=== PATIENT | female | born 1970 | race Caucasian/White ===

== ENCOUNTER 2018-01-10 20:21 | Inpatient (IN) | payer BC ==
[~2018-01-10] VITALS: Ht 172.7 cm; Wt 124.8 kg
[2018-01-10] MEDS ORDERED: ondansetron 4mg rapidly disintigrating tab PO ONE (20:55)
[2018-01-10] MEDS ORDERED: fentaNYL/PF 50MCG/1 ML 2ML syringe IV ONE (21:30)
[2018-01-10] MEDS ORDERED: ondansetron/PF 4mg/2ml inj IV ONE (21:30)
[2018-01-10] MEDS ORDERED: normal saline 1000ML IV soln IVB ONE ×2 (21:30→22:40)
[2018-01-10 22:00] LABS: BASOPHILS % (AUTO) 0.2 % (0-1); EOSINOPHILS # (AUTO) 0.3 X10'3 (0-0.9); EOSINOPHILS % (AUTO) 2.7 % (0-6); HEMATOCRIT 43.7 % (35.0-45.0); HEMOGLOBIN 14.1 g/dl (12.0-16.0); LYMPHOCYTES # (AUTO) 1.8 X10'3 (1.1-4.8); MEAN CORPUSCULAR HEMOGLOBIN 25.1 PG (27.0-31.0); MEAN CORPUSCULAR HGB CONC 32.2 % (33.0-36.5); MEAN CORPUSCULAR VOLUME 77.8 FL (78-98); MEAN PLATELET VOLUME 9.1 FL (7.4-10.4); MONOCYTES # (AUTO) 0.6 X10'3 (0-0.9); MONOCYTES % (AUTO) 4.8 % (2-12); NEUTROPHILS # (AUTO) 9.4 X10'3 (1.8-7.7); NEUTROPHILS % (AUTO) 77.3 % (42-75); PLATELET COUNT 232 X10'3 (140-440); RED BLOOD COUNT 5.62 X10'6 (4.20-5.60); RED CELL DISTRIBUTION WIDTH 18.4 % (11.5-14.5); WHITE BLOOD COUNT 12.2 X10'3 (4.5-11.0)
[2018-01-10] MEDS ORDERED: iohexol 300mg/ml 100ml inj. ONE (22:10)
[2018-01-10] MEDS ORDERED: ONDA4TAB9 PO (22:11)
[2018-01-10] MEDS ORDERED: OXYC-150 PO (22:11)
[2018-01-10] MEDS ORDERED: DOCU-28 PO (22:12)
[2018-01-10 22:14] LABS: ALANINE AMINOTRANSFERASE 22 U/L (12-78); ALBUMIN 3.3 G/DL (3.4-5.0); ALBUMIN/GLOBULIN RATIO 0.9 (1.1-1.5); ALKALINE PHOSPHATASE 19 IU/L (46-116); ANION GAP 6 (8-16); ASPARTATE AMINO TRANSFERASE 14 U/L (10-37); BILIRUBIN,TOTAL 0.4 MG/DL (0.1-1.0); BLOOD UREA NITROGEN 20 MG/DL (7-18); BUN/CREATININE RATIO 16.7 (6.6-38.0); CALCIUM 9.3 MG/DL (8.5-10.1); CHLORIDE 107 MMOL/L (99-107); GLUCOSE 107 MG/DL (70-104); POTASSIUM 3.8 MMOL/L (3.5-5.1); SODIUM 144 MMOL/L (135-145); TOTAL CARBON DIOXIDE 30.8 MMOL/L (24-32); TOTAL PROTEIN 7.1 G/DL (6.4-8.2); eGFR 48 ML/MIN
[2018-01-10] MEDS ORDERED: morphine 4 MG/ML inj SYRINge IV ONE (22:55)
[2018-01-11] VITALS (22 sets, daily range): BP systolic 116–225; BP diastolic 62–110
[2018-01-11] MEDS ORDERED: ondansetron/PF 4mg/2ml inj IV ONE (00:20)
[2018-01-11] MEDS ORDERED: ceFAZolin 1GM/D5W- ADD-VANTAGE 50 ML IV ONE (00:25)
[2018-01-11] MEDS ORDERED: potassium Cl 40MEQ/NS 500ml 500 ML IV PRN ×2 (01:00)
[2018-01-11] MEDS ORDERED: mag hydrox/Alum hydrox/simeth 30ml oral suspension PO PRN (01:00)
[2018-01-11] MEDS ORDERED: magnesium Cl slow-release 64mg tablet PO PRN ×2 (01:00→08:40)
[2018-01-11] MEDS ORDERED: potassium Cl 20 mEq SR tablet PO PRN ×4 (01:00→08:40)
[2018-01-11] MEDS ORDERED: magnesium hydroxide 30ml (MOM) UD suspension PO PRN (01:00)
[2018-01-11] MEDS ORDERED: magnesium 2GM in 50ml NS 50 ML IV PRN ×2 (01:00→08:40)
[2018-01-11] MEDS ORDERED: magnesium 4gm in 100ml NS 100 ML IV PRN ×2 (01:00→08:40)
[2018-01-11] MEDS ORDERED: acetaminophen 325mg tablet PO PRN (01:00)
[2018-01-11] MEDS ORDERED: ondansetron/PF 4mg/2ml inj IV PRN ×2 (01:00→08:40)
[2018-01-11] MEDS ORDERED: morphine 4 MG/ML inj SYRINge IV ONE (01:05)
[2018-01-11] MEDS: normal saline 1000ml 1,000 ML IV SCH ×4 (01:17→22:26)
[2018-01-11] MEDS ORDERED: enalaprilat dihydrate 2.5mg/2ml vial IV PRN (02:45)
[2018-01-11] MEDS: hydrALAZINE 20mg/ml inj. IV PRN ×2 (04:55→23:12)
[2018-01-11] MEDS: morphine 4 MG/ML inj SYRINge IV PRN ×2 (05:36→21:38)
[2018-01-11 06:16] LABS: PARTIAL THROMBOPLASTIN TIME 26 SECONDS (22-32); PROTHROMBIN TIME 10.2 SECONDS (9.0-12.0)
[2018-01-11] MEDS ORDERED: ceFAZolin 1000mg inj ONE ×2 (06:40→07:56)
[2018-01-11] MEDS ORDERED: hydrALAZINE 20mg/ml inj. IV ONE (06:45)
[2018-01-11] MEDS: K and/or MAG REPLACEMENT MC SCH (06:55)
[2018-01-11] MEDS: ceFAZolin 1GM/D5W- ADD-VANTAGE 50 ML IV SCH ×2 (07:09→16:55)
[2018-01-11] MEDS ORDERED: sevoflurane 250ml liquid IH ONE (07:36)
[2018-01-11] MEDS ORDERED: EPHEDRINE SULFATE/0.9% NACL/PF 50 MG/5 ML ML IJ ONE (07:36)
[2018-01-11] MEDS ORDERED: fentaNYL /PF 50mcg/ml 5ml ampule ONE (07:38)
[2018-01-11] MEDS ORDERED: propofol inj 20 ML IV ONE (07:56)
[2018-01-11] MEDS ORDERED: LIDOcaine 2% (20mg/ml) 5ml vial ONE (07:56)
[2018-01-11] MEDS ORDERED: succinylcholine 20mg/ml inj IV ONE (07:56)
[2018-01-11] MEDS ORDERED: rocuronium 10mg/ml inj IV ONE (08:09)
[2018-01-11] MEDS ORDERED: MIDAZolam 5mg/ml 2ml vial ONE (08:35)
[2018-01-11] MEDS ORDERED: fentaNYL/PF 50MCG/1 ML 2ML syringe ONE (08:36)
[2018-01-11] MEDS ORDERED: FENTANYL-0.9 % NACL/PF 100 ML IV PRN (08:36)
[2018-01-11] MEDS ORDERED: labetalol 20mg/4ml (5mg/ml) syringe IV ONE ×2 (08:38→08:50)
[2018-01-11] MEDS ORDERED: DEXMEDETOMIDINE IV ONE (08:40)
[2018-01-11] MEDS ORDERED: sodium phosphate inj. 15 MMOL in dextrose 5%-water 150 ML IV PRN (08:40)
[2018-01-11] MEDS ORDERED: ipratropium/albuterol 3ml nebule NEB PRN ×2 (08:40)
[2018-01-11] MEDS ORDERED: NORMAL SALINE IV ONE (08:40)
[2018-01-11] MEDS ORDERED: methylPREDNISolone sod succ 125mg/2ml vial IV ONE (08:40)
[2018-01-11] MEDS ORDERED: acetaminophen 650mg rectal suppository RC PRN (08:40)
[2018-01-11] MEDS ORDERED: dexmedetomidine inj. 400 MCG in normal saline 100ml IV soln 100 ML IV PRN (08:40)
[2018-01-11] MEDS ORDERED: sodium phosphate inj. 30 MMOL in dextrose 5%-water 250 ML IV PRN (08:40)
[2018-01-11] MEDS ORDERED: fentaNYL/PF 50MCG/1 ML 2ML syringe IV ONE (08:50)
[2018-01-11] MEDS ORDERED: MIDAZolam 5mg/ml 2ml vial IV ONE (08:50)
[2018-01-11 09:00] LABS: BASOPHILS % (AUTO) 0 % (0-1); EOSINOPHILS # (AUTO) 0.3 X10'3 (0-0.9); EOSINOPHILS % (AUTO) 2.6 % (0-6); HEMATOCRIT 47.5 % (35.0-45.0); HEMOGLOBIN 15.3 g/dl (12.0-16.0); LYMPHOCYTES # (AUTO) 1.1 X10'3 (1.1-4.8); LYMPHOCYTES % (AUTO) 9.3 % (21-51); MEAN CORPUSCULAR HEMOGLOBIN 25.2 PG (27.0-31.0); MEAN CORPUSCULAR HGB CONC 32.2 % (33.0-36.5); MEAN CORPUSCULAR VOLUME 78.4 FL (78-98); MEAN PLATELET VOLUME 9.6 FL (7.4-10.4); MONOCYTES # (AUTO) 0.6 X10'3 (0-0.9); MONOCYTES % (AUTO) 4.8 % (2-12); NEUTROPHILS # (AUTO) 10.1 X10'3 (1.8-7.7); NEUTROPHILS % (AUTO) 83.3 % (42-75); PLATELET COUNT 238 X10'3 (140-440); RED BLOOD COUNT 6.06 X10'6 (4.20-5.60); RED CELL DISTRIBUTION WIDTH 18.5 % (11.5-14.5); WHITE BLOOD COUNT 12.1 X10'3 (4.5-11.0)
[2018-01-11] MEDS ORDERED: diphenhydrAMINE 50 mg/ml inj IV ONE (09:15)
[2018-01-11] MEDS: pantoprazole 40 MG vial IV SCH (09:16)
[2018-01-11 09:19] LABS: ANION GAP 10 (8-16); BLOOD UREA NITROGEN 17 MG/DL (7-18); CALCIUM 8.5 MG/DL (8.5-10.1); CHLORIDE 105 MMOL/L (99-107); CREATININE 1.06 MG/DL (0.40-0.90); GLUCOSE 116 MG/DL (70-104); MAGNESIUM 1.9 MG/DL (1.5-2.4); PHOSPHORUS 5.2 MG/DL (2.3-4.5); SODIUM 142 MMOL/L (135-145); TOTAL CARBON DIOXIDE 27.3 MMOL/L (24-32); eGFR 55 ML/MIN
[2018-01-11 09:20] LABS: ALANINE AMINOTRANSFERASE 23 U/L (12-78); ALBUMIN/GLOBULIN RATIO 0.8 (1.1-1.5); ALKALINE PHOSPHATASE 24 IU/L (46-116); ASPARTATE AMINO TRANSFERASE 16 U/L (10-37); BILIRUBIN,TOTAL 0.5 MG/DL (0.1-1.0); TOTAL PROTEIN 6.9 G/DL (6.4-8.2)
[2018-01-11 09:40] LABS: ABG BASE EXCESS -1.1 mmol/L (-2.0-3.0); ABG HCO3 27.1 mmol/L (22.0-26.0); ABG OXYGEN SATURATION 98.9 % (95-98); ABG PCO2 (T) 59.5 mmHg (32.0-45.0); ABG PH (T) 7.276 (7.350-7.450); ABG PO2 (T) 171.6 mmHg (83-108); ALLEN'S TEST Positive; FCOHb 2.4 % (0.5-1.5); FMetHb 0.3 % (0.3-1.12); FO2Hb 96.2 % (94-100); PEEP 5 cm H2O; RESPIRATORY RATE 14 b/min; TIDAL VOLUME 400 mL; TOTAL HEMOGLOBIN 15.7 G/dl (12.0-16.0)
[2018-01-11] MEDS: ipratropium/albuterol 3ml nebule NEB SCH ×4 (11:52→22:59)
[2018-01-11] MEDS ORDERED: LOSA25TA96 PO (14:24)
[2018-01-11] MEDS: methylPREDNISolone sod succ 125mg/2ml vial IV SCH ×2 (14:28→20:00)
[2018-01-11] MEDS: heparin, porcine 5000 units/ml vial SQ SCH (20:00)
[2018-01-11] MEDS ORDERED: temazepam 15mg capsule PO PRN (21:00)
[2018-01-12] VITALS (24 sets, daily range): BP systolic 134–209; BP diastolic 54–114
[2018-01-12] MEDS: ceFAZolin 1GM/D5W- ADD-VANTAGE 50 ML IV SCH ×3 (00:04→16:39)
[2018-01-12] MEDS ORDERED: hydrALAZINE 20mg/ml inj. IV ONE (02:05)
[2018-01-12] MEDS: methylPREDNISolone sod succ 125mg/2ml vial IV SCH ×2 (02:07→07:56)
[2018-01-12] MEDS: ipratropium/albuterol 3ml nebule NEB SCH ×6 (03:18→23:01)
[2018-01-12] MEDS: morphine 4 MG/ML inj SYRINge IV PRN ×4 (03:58→18:55)
[2018-01-12 05:24] LABS: BASOPHILS % (AUTO) 0.2 % (0-1); EOSINOPHILS # (AUTO) 0.3 X10'3 (0-0.9); EOSINOPHILS % (AUTO) 1.5 % (0-6); HEMATOCRIT 47.4 % (35.0-45.0); HEMOGLOBIN 15.1 g/dl (12.0-16.0); LYMPHOCYTES # (AUTO) 0.6 X10'3 (1.1-4.8); LYMPHOCYTES % (AUTO) 3.7 % (21-51); MEAN CORPUSCULAR HEMOGLOBIN 25.1 PG (27.0-31.0); MEAN CORPUSCULAR HGB CONC 31.8 % (33.0-36.5); MEAN CORPUSCULAR VOLUME 78.9 FL (78-98); MEAN PLATELET VOLUME 9.8 FL (7.4-10.4); MONOCYTES # (AUTO) 0.2 X10'3 (0-0.9); MONOCYTES % (AUTO) 1.3 % (2-12); NEUTROPHILS # (AUTO) 16.1 X10'3 (1.8-7.7); NEUTROPHILS % (AUTO) 93.3 % (42-75); PLATELET COUNT 216 X10'3 (140-440); RED CELL DISTRIBUTION WIDTH 18.5 % (11.5-14.5); WHITE BLOOD COUNT 17.2 X10'3 (4.5-11.0)
[2018-01-12 05:52] LABS: ANION GAP 10 (8-16); BILIRUBIN,TOTAL 0.4 MG/DL (0.1-1.0); BLOOD UREA NITROGEN 17 MG/DL (7-18); BUN/CREATININE RATIO 18.3 (6.6-38.0); CALCIUM 8.8 MG/DL (8.5-10.1); CHLORIDE 105 MMOL/L (99-107); CREATININE 0.93 MG/DL (0.40-0.90); GLUCOSE 127 MG/DL (70-104); PHOSPHORUS 4.5 MG/DL (2.3-4.5); POTASSIUM 4.5 MMOL/L (3.5-5.1); SODIUM 141 MMOL/L (135-145); TOTAL CARBON DIOXIDE 26.5 MMOL/L (24-32); TOTAL PROTEIN 6.8 G/DL (6.4-8.2); eGFR 64 ML/MIN
[2018-01-12 05:53] LABS: ALANINE AMINOTRANSFERASE 17 U/L (12-78); ALBUMIN 2.7 G/DL (3.4-5.0); ALBUMIN/GLOBULIN RATIO 0.7 (1.1-1.5); ALKALINE PHOSPHATASE 23 IU/L (46-116); ASPARTATE AMINO TRANSFERASE 17 U/L (10-37)
[2018-01-12] MEDS: pantoprazole 40 MG vial IV SCH (07:56)
[2018-01-12] MEDS: heparin, porcine 5000 units/ml vial SQ SCH ×2 (07:57→19:52)
[2018-01-12] MEDS: hydrALAZINE 20mg/ml inj. IV PRN ×2 (07:58→16:45)
[2018-01-12] MEDS: K and/or MAG REPLACEMENT MC SCH (08:00)
[2018-01-12] MEDS: losartan 25mg tablet PO SCH (09:14)
[2018-01-12] MEDS: normal saline 1000ml 1,000 ML IV SCH ×2 (11:16→16:39)
[2018-01-12] MEDS ORDERED: mineral oil/petrolatum ophthal oint EACHEYE SCH (14:00)
[2018-01-12] MEDS: oxyCODONE/APAP 10/325mg tablet PO SCH ×2 (16:39→23:40)
[2018-01-12] MEDS: methylPREDNISolone sod succ/PF 40mg inj. IV SCH (19:52)
[2018-01-12 22:19] LABS: ALANINE AMINOTRANSFERASE 16 U/L (12-78); ALBUMIN 2.6 G/DL (3.4-5.0); ALBUMIN/GLOBULIN RATIO 0.7 (1.1-1.5); ALKALINE PHOSPHATASE 20 IU/L (46-116); ANION GAP 4 (8-16); ASPARTATE AMINO TRANSFERASE 17 U/L (10-37); BILIRUBIN,TOTAL 0.3 MG/DL (0.1-1.0); BLOOD UREA NITROGEN 20 MG/DL (7-18); CALCIUM 8.9 MG/DL (8.5-10.1); CHLORIDE 105 MMOL/L (99-107); CREATININE 0.91 MG/DL (0.40-0.90); GLUCOSE 98 MG/DL (70-104); MAGNESIUM 2.1 MG/DL (1.5-2.4); POTASSIUM 4.3 MMOL/L (3.5-5.1); SODIUM 141 MMOL/L (135-145); TOTAL CARBON DIOXIDE 32.5 MMOL/L (24-32); TOTAL PROTEIN 6.2 G/DL (6.4-8.2); eGFR 66 ML/MIN
[2018-01-13] VITALS (31 sets, daily range): BP systolic 139–213; BP diastolic 68–106
[2018-01-13] MEDS: ceFAZolin 1GM/D5W- ADD-VANTAGE 50 ML IV SCH ×4 (01:45→23:38)
[2018-01-13] MEDS: morphine 4 MG/ML inj SYRINge IV PRN ×4 (01:45→20:57)
[2018-01-13] MEDS: ipratropium/albuterol 3ml nebule NEB SCH ×2 (03:13→07:09)
[2018-01-13 05:24] LABS: BASOPHILS % (AUTO) 0.2 % (0-1); EOSINOPHILS # (AUTO) 0.2 X10'3 (0-0.9); EOSINOPHILS % (AUTO) 1.5 % (0-6); HEMATOCRIT 45.3 % (35.0-45.0); HEMOGLOBIN 14.4 g/dl (12.0-16.0); LYMPHOCYTES # (AUTO) 1.6 X10'3 (1.1-4.8); LYMPHOCYTES % (AUTO) 12.6 % (21-51); MEAN CORPUSCULAR HEMOGLOBIN 25.3 PG (27.0-31.0); MEAN CORPUSCULAR HGB CONC 31.7 % (33.0-36.5); MEAN CORPUSCULAR VOLUME 79.6 FL (78-98); MEAN PLATELET VOLUME 9.9 FL (7.4-10.4); MONOCYTES # (AUTO) 0.8 X10'3 (0-0.9); NEUTROPHILS # (AUTO) 10.4 X10'3 (1.8-7.7); NEUTROPHILS % (AUTO) 79.7 % (42-75); PLATELET COUNT 189 X10'3 (140-440); RED BLOOD COUNT 5.68 X10'6 (4.20-5.60); RED CELL DISTRIBUTION WIDTH 18.8 % (11.5-14.5)
[2018-01-13 06:17] LABS: CHLORIDE 104 MMOL/L (99-107); GLUCOSE 101 MG/DL (70-104); POTASSIUM 4.3 MMOL/L (3.5-5.1); SODIUM 140 MMOL/L (135-145); TOTAL CARBON DIOXIDE 27.5 MMOL/L (24-32)
[2018-01-13 06:18] LABS: ALANINE AMINOTRANSFERASE 15 U/L (12-78); ALBUMIN 2.6 G/DL (3.4-5.0); ALBUMIN/GLOBULIN RATIO 0.7 (1.1-1.5); ALKALINE PHOSPHATASE 19 IU/L (46-116); ANION GAP 9 (8-16); ASPARTATE AMINO TRANSFERASE 15 U/L (10-37); BILIRUBIN,TOTAL 0.4 MG/DL (0.1-1.0); BLOOD UREA NITROGEN 21 MG/DL (7-18); BUN/CREATININE RATIO 22.8 (6.6-38.0); CALCIUM 8.8 MG/DL (8.5-10.1); CREATININE 0.92 MG/DL (0.40-0.90); MAGNESIUM 2.1 MG/DL (1.5-2.4); PHOSPHORUS 4.5 MG/DL (2.3-4.5); TOTAL PROTEIN 6.4 G/DL (6.4-8.2); eGFR 65 ML/MIN
[2018-01-13] MEDS: methylPREDNISolone sod succ/PF 40mg inj. IV SCH ×2 (07:39→20:59)
[2018-01-13] MEDS: pantoprazole 40 MG vial IV SCH (07:39)
[2018-01-13] MEDS: oxyCODONE/APAP 10/325mg tablet PO SCH ×3 (07:40→23:38)
[2018-01-13] MEDS: losartan 25mg tablet PO SCH (07:40)
[2018-01-13] MEDS: K and/or MAG REPLACEMENT MC SCH (07:54)
[2018-01-13] MEDS: heparin, porcine 5000 units/ml vial SQ SCH ×2 (07:54→20:59)
[2018-01-13] MEDS ORDERED: bisacodyl 10mg suppository rectal RC PRN (08:40)
[2018-01-13] MEDS ORDERED: nicotine 21mg patch - 24 hr TD ONE (09:35)
[2018-01-13] MEDS: normal saline 1000ml 1,000 ML IV SCH (13:56)
[2018-01-13] MEDS: hydrALAZINE 20mg/ml inj. IV PRN ×2 (16:15→22:04)
[2018-01-13] MEDS ORDERED: midazolam 2 mg/2 ml injection ONE (18:46)
[2018-01-13] MEDS ORDERED: fentaNYL/PF 50MCG/1 ML 2ML syringe ONE (18:46)
[2018-01-13] MEDS ORDERED: rocuronium 10mg/ml inj IV ONE ×2 (18:46→19:05)
[2018-01-13] MEDS ORDERED: sevoflurane 250ml liquid IH ONE (18:48)
[2018-01-13] MEDS ORDERED: ketorolac trometh. 30mg/ml inj. ONE (19:04)
[2018-01-13] MEDS ORDERED: ondansetron/PF 4mg/2ml inj ONE ×2 (19:04)
[2018-01-13] MEDS ORDERED: dexamethasone sod phosphate 4mg/ml inj. ONE (19:04)
[2018-01-13] MEDS ORDERED: propofol inj 20 ML IV ONE (19:05)
[2018-01-13] MEDS ORDERED: LIDOcaine 2% (20mg/ml) 5ml vial ONE (19:05)
[2018-01-13] MEDS ORDERED: HYDROmorphone 1 mg/ml syringe ONE (19:14)
[2018-01-13] MEDS ORDERED: sugammadex 200mg/2ml injection IV ONE (19:26)
[2018-01-13] MEDS ORDERED: glycopyrrolate 0.2mg/ml inj ONE (19:26)
[2018-01-13] MEDS ORDERED: neostigmine methylsulfate 1 MG/ML 10ml vial ONE (19:26)
[2018-01-13] MEDS ORDERED: ringers solution, lacted 1,000 ML IV ONE (19:39)
[2018-01-13] MEDS ORDERED: meperidine/PF 25mg/ml syringe IV PRN (19:40)
[2018-01-13] MEDS ORDERED: labetalol 20mg/4ml (5mg/ml) syringe IV PRN (19:40)
[2018-01-13] MEDS ORDERED: ondansetron/PF 4mg/2ml inj IV PRN (19:40)
[2018-01-13] MEDS ORDERED: ipratropium/albuterol 3ml nebule IH PRN (19:40)
[2018-01-13] MEDS ORDERED: proCHLORperazine 10 MG/2 ml inj IV PRN (19:40)
[2018-01-13] MEDS ORDERED: fentaNYL/PF 50MCG/1 ML 2ML syringe IV PRN ×2 (19:40)
[2018-01-13] MEDS ORDERED: hydrALAZINE 20mg/ml inj. IV PRN (19:40)
[2018-01-13] MEDS ORDERED: HYDROmorphone inj. 0.5 MG/0.5 ML DISP.SYRIN IV PRN ×2 (19:40)
[2018-01-13] MEDS ORDERED: proMETHazine 25mg rectal suppository RC PRN (19:40)
[2018-01-13] MEDS: lactobacillus rhamnosus 10,000 MMU CELLS/CAPSULE PO SCH (20:59)
[2018-01-13] MEDS ORDERED: guaiFENesin/codeine phos 10ml UD oral syrup PO PRN (21:40)
[2018-01-14] VITALS: BP 161/91
[2018-01-14 00:35] VITALS: BP 147/84
[2018-01-14] MEDS: normal saline 1000ml 1,000 ML IV SCH (02:19)
[2018-01-14 04:00] VITALS: BP 135/79
[2018-01-14] MEDS: morphine 4 MG/ML inj SYRINge IV PRN (04:40)
[2018-01-14 05:23] LABS: BASOPHILS % (AUTO) 0 % (0-1); EOSINOPHILS # (AUTO) 0.2 X10'3 (0-0.9); EOSINOPHILS % (AUTO) 1.7 % (0-6); HEMATOCRIT 39.3 % (35.0-45.0); HEMOGLOBIN 12.8 g/dl (12.0-16.0); LYMPHOCYTES # (AUTO) 0.6 X10'3 (1.1-4.8); LYMPHOCYTES % (AUTO) 5.9 % (21-51); MEAN CORPUSCULAR HEMOGLOBIN 25.7 PG (27.0-31.0); MEAN CORPUSCULAR HGB CONC 32.6 % (33.0-36.5); MEAN PLATELET VOLUME 9.5 FL (7.4-10.4); MONOCYTES # (AUTO) 0.3 X10'3 (0-0.9); MONOCYTES % (AUTO) 2.8 % (2-12); NEUTROPHILS # (AUTO) 8.6 X10'3 (1.8-7.7); NEUTROPHILS % (AUTO) 89.6 % (42-75); PLATELET COUNT 200 X10'3 (140-440); RED BLOOD COUNT 4.98 X10'6 (4.20-5.60); RED CELL DISTRIBUTION WIDTH 18.2 % (11.5-14.5); WHITE BLOOD COUNT 9.6 X10'3 (4.5-11.0)
[2018-01-14 05:28] LABS: ALANINE AMINOTRANSFERASE 23 U/L (12-78); ALBUMIN 2.2 G/DL (3.4-5.0); ALBUMIN/GLOBULIN RATIO 0.7 (1.1-1.5); ALKALINE PHOSPHATASE 16 IU/L (46-116); ANION GAP 6 (8-16); ASPARTATE AMINO TRANSFERASE 16 U/L (10-37); BILIRUBIN,TOTAL 0.4 MG/DL (0.1-1.0); BLOOD UREA NITROGEN 22 MG/DL (7-18); BUN/CREATININE RATIO 24.4 (6.6-38.0); CALCIUM 8.3 MG/DL (8.5-10.1); CHLORIDE 104 MMOL/L (99-107); GLUCOSE 118 MG/DL (70-104); PHOSPHORUS 5.3 MG/DL (2.3-4.5); POTASSIUM 4.7 MMOL/L (3.5-5.1); SODIUM 141 MMOL/L (135-145); TOTAL CARBON DIOXIDE 30.8 MMOL/L (24-32); TOTAL PROTEIN 5.4 G/DL (6.4-8.2); eGFR 67 ML/MIN
[2018-01-14 07:12] VITALS: BP 146/80
[2018-01-14] MEDS ORDERED: nicotine 21mg patch - 24 hr TD SCH (08:00)
[2018-01-14] MEDS: lactobacillus rhamnosus 10,000 MMU CELLS/CAPSULE PO SCH (08:37)
[2018-01-14] MEDS: ceFAZolin 1GM/D5W- ADD-VANTAGE 50 ML IV SCH ×2 (08:37→15:39)
[2018-01-14] MEDS: pantoprazole 40 MG vial IV SCH (08:37)
[2018-01-14] MEDS: oxyCODONE/APAP 10/325mg tablet PO SCH ×2 (08:38→15:42)
[2018-01-14] MEDS: losartan 25mg tablet PO SCH (08:38)
[2018-01-14] MEDS: heparin, porcine 5000 units/ml vial SQ SCH ×2 (08:39→17:33)
[2018-01-14] MEDS: methylPREDNISolone sod succ/PF 40mg inj. IV SCH (08:40)
[2018-01-14] MEDS: K and/or MAG REPLACEMENT MC SCH (08:57)
[2018-01-14 11:19] VITALS: BP 166/89
[2018-01-14] MEDS ORDERED: potassium Cl 20 mEq SR tablet PO STA (13:57)
[2018-01-14] MEDS ORDERED: furosemide 40mg/4ml inj IV ONE (14:00)
[2018-01-14] MEDS ORDERED: albuterol 2.5 MG/3 ML nebule NEB ONE (14:00)
== END 2018-01-14 17:45 | disposition home or self-care (01) | DRG 353 ==
LOC: EDSEX 20:21 → ER 20:21 → ED HOLD 01-11 00:59 → SUR 3N 01-11 02:00 → CICU 2S 01-11 08:54 → SUR 3N 01-13 17:46
PROVIDERS: ADMIT Family Medicine; ATTEND Surgery
PROC: BW211ZZ Computerized Tomography (CT Scan) of Abdomen and Pelvis using Low Osmolar Contrast (ICD-10-PCS; principal; 2018-01-10)
PROC: 0WPF0JZ Removal of Synthetic Substitute from Abdominal Wall, Open Approach (ICD-10-PCS; 2018-01-11)
PROC: 5A1935Z Respiratory Ventilation, Less than 24 Consecutive Hours (ICD-10-PCS; 2018-01-11)
PROC: 0WQFXZZ Repair Abdominal Wall, External Approach (ICD-10-PCS; 2018-01-13)
DX: K43.0 Incisional hernia with obstruction, without gangrene (principal); J96.00 Acute respiratory failure, unspecified whether with hypoxia or hypercapnia; N17.9 Acute kidney failure, unspecified; E66.01 Morbid (severe) obesity due to excess calories; L03.311 Cellulitis of abdominal wall; R18.8 Other ascites; Z68.41 Body mass index [BMI] 40.0-44.9, adult; G47.30 Sleep apnea, unspecified; I10 Essential (primary) hypertension; J45.909 Unspecified asthma, uncomplicated; K21.9 Gastro-esophageal reflux disease without esophagitis; Z88.2 Allergy status to sulfonamides
CPT/HCPCS: Z7506 ×2; 36415; 36600; 71045; 74177; 80053; 82803; 82948; 83735; 84100; 84443; 85018; 85025; 85610; 85730; 87070; 87075; 94002; 94640; 94760; 97110; 97116; 97162; 97530; A6213; A6253; A6255; A6446; A6449; A7000; A7015; C1758; C9113; C9399; J0330; J0360; J0690; J1100; J1170; J1200; J1644; J1885; J1940; J2001; J2175; J2250; J2270; J2405; J2704; J2710; J2920; J2930; J3010; J3490; J7030; J7120; Q9967